=== PATIENT | male | born 1975 | race Caucasian/White ===

== ENCOUNTER → 2016-12-07 | Emergency (ER) | payer OTHER ==
[~2016-12-07] MED LIST: MAG HYDROX/AL HYDROX/SIMETH 30 ML UNIT-DOSE CUP ONE; MAG HYDROX/AL HYDROX/SIMETH 355 ML ORAL.SUSP PO ONE; PANTOPRAZOLE SOD 40 MG SUSPENSION PACKET PO ONE; PANTOPRAZOLE SODIUM 100 ML IVPB ONE; RANITIDINE HCL 150 MG TABLET (FP) ONE; RANITIDINE HCL 150 MG TABLET (FP) PO ONE
[2016-12-07 08:47] VITALS: BP 118/73; PULSE 68; TEMP 97.8; BMI 19.2
--- NOTE | 2016-12-07 09:43 | PDOC ---
History of Present Illness - General History Source: Patient Exam Limitations: No Limitations - History of Present Illness Initial Comments: 12/07/16 09:43 The patient is a 41 year old male with significant past medical history of hiatal hernia and depression who presents to the ED with nausea and epigastric pain. He reports burning since this morning in the epigastric area and nausea. He notes that he "loses his breath" when he goes to vomit. He also notes that he has difficulty eating meat because he has to vomit shortly after. He notes that he had an endoscopy 7 years ago and was diagnosed with hiatal hernia in [place] and have not had surgery since. He denies fever, chills, diarrhea, constipation, headache, blurry vision. He denies dysuria, frequency, urgency or hematuria. <Meghan Vadlez - Last Filed: 12/07/16 10:39> <Ze Moran - Last Filed: 12/07/16 10:59> - General Chief Complaint: Pain, Acute Stated Complaint: SOB, NAUSEA Time Seen by Provider: 12/07/16 09:08 Past History <Meghan Valdez - Last Filed: 12/07/16 10:39> - Past Medical History Other medical history: abd hernia - Psycho/Social/Smoking Cessation Hx Suicidal Ideation: No Smoking History: Never smoked <Ze Moran - Last Filed: 12/07/16 10:59> - Past Medical History Allergies/Adverse Reactions: Allergies Allergy/AdvReac Type Severity Reaction Status Date / Time No Known Allergies Allergy Verified 12/07/16 08:43 Home Medications: Ambulatory Orders Pantoprazole Sodium [Protonix -] 40 mg PO BID #28 tablet.ec 12/07/16 Ranitidine [Zantac -] 300 mg PO BID #28 tablet 12/07/16 Review of Systems - Review of Systems Able to Perform ROS?: Yes Comments:: 12/07/16 09:44 GENERAL/CONSTITUTIONAL: No fever or chills. No weakness. HEAD, EYES, EARS, NOSE AND THROAT: No change in vision. No ear pain or discharge. No sore throat. CARDIOVASCULAR: No chest pain or shortness of breath. RESPIRATORY: No cough, wheezing, or hemoptysis. GASTROINTESTINAL: +nausea +epigastic burning, +vomiting. No diarrhea or constipation. GENITOURINARY: No dysuria, frequency, or change in urination. MUSCULOSKELETAL: No joint or muscle swelling or pain. No neck or back pain. SKIN: No rash NEUROLOGIC: No headache, vertigo, loss of consciousness, or change in strength/ sensation. ENDOCRINE: No increased thirst. No abnormal weight change. HEMATOLOGIC/LYMPHATIC: No anemia, easy bleeding, or history of blood clots. ALLERGIC/IMMUNOLOGIC: No hives or skin allergy. <Meghan Valdez - Last Filed: 12/07/16 10:39> *Physical Exam - Vital Signs Last Vital Signs Temp Pulse Resp BP Pulse Ox 97.8 F 68 19 118/73 100 12/07/16 08:43 12/07/16 08:43 12/07/16 08:43 12/07/16 08:43 12/07/16 08:43 - Physical Exam Comments: 12/07/16 09:45 GENERAL: Awake, alert, and fully oriented, in no acute distress HEAD: No signs of trauma EYES: PERRLA, EOMI, sclera anicteric, conjunctiva clear ENT: Auricles normal inspection, hearing grossly normal, nares patent, oropharynx clear without exudates. Moist mucosa NECK: Normal ROM, supple, no lymphadenopathy, JVD, or masses LUNGS: Breath sounds equal, clear to auscultation bilaterally. No wheezes, and no crackles HEART: Regular rate and rhythm, normal S1 and S2, no murmurs, rubs or gallops ABDOMEN: Soft, nontender, normoactive bowel sounds. No guarding, no rebound. No masses EXTREMITIES: Normal range of motion, no edema. No clubbing or cyanosis. No cords, erythema, or tenderness NEUROLOGICAL: Cranial nerves II through XII grossly intact. Normal speech, normal gait SKIN: Warm, Dry, normal turgor, no rashes or lesions noted. <Meghan Valdez - Last Filed: 12/07/16 10:39> - Vital Signs Last Vital Signs Temp Pulse Resp BP Pulse Ox 97.8 F 68 19 118/73 100 12/07/16 08:43 12/07/16 08:43 12/07/16 08:43 12/07/16 08:43 12/07/16 08:43 <Ze Moran - Last Filed: 12/07/16 10:59> ED Treatment Course - LABORATORY CBC & Chemistry Diagram: 12/07/16 09:20 12/07/16 09:20 - RADIOLOGY Radiology Studies Ordered: 12/07/16 10:39 EXAM#: TYPE/EXAM: RESULT: US/ABDOMEN US -LIMITED Epigastric pain. Right upper abdomen ultrasound. The liver is within normal limits in size and echotexture. Gallbladder is adequately distended with a 3 mm polyp identified. No gallstones, gallbladder wall thickening or pericholecystic free fluid is identified. No intra or extrahepatic bile duct dilatation is seen. The right kidney measures 10.4 cm sagittal length and appears unremarkable. Visualized portion of the pancreas appears unremarkable Visualized portion of the proximal abdominal aorta and inferior vena cava appear unremarkable. Normal flow in the main portal vein IMPRESSION: 3 mm gallbladder polyp without evidence of gallstones or wall thickening. - Medications Given in the ED: ED Medications Discontinued Medications Generic Name Dose Route Start Last Admin Trade Name Freq PRN Reason Stop Dose Admin Al Hydroxide/Mg Hydroxide 30 ml 12/07/16 09:23 12/07/16 09:32 Mylanta Suspension - PO 12/07/16 09:24 30 ml ONCE ONE Administration Pantoprazole Sodium 40 mg 12/07/16 09:23 12/07/16 09:32 Protonix Packets For Oral Suspension - PO 12/07/16 09:24 40 mg ONCE ONE Administration Ranitidine HCl 300 mg 12/07/16 09:23 12/07/16 09:32 Zantac - PO 12/07/16 09:24 300 mg ONCE ONE Administration <Meghan Valdez - Last Filed: 12/07/16 10:39> - LABORATORY CBC & Chemistry Diagram: 12/07/16 09:20 12/07/16 09:20 - RADIOLOGY Radiology Studies Ordered: Category Date Time Status GALLBLADDER US [US] Stat Ultrasound 12/07/16 09:23 Ordered - Medications Given in the ED: ED Medications Discontinued Medications Generic Name Dose Route Start Last Admin Trade Name Freq PRN Reason Stop Dose Admin Al Hydroxide/Mg Hydroxide 30 ml 12/07/16 09:23 12/07/16 09:32 Mylanta Suspension - PO 12/07/16 09:24 30 ml ONCE ONE Administration Pantoprazole Sodium 40 mg 12/07/16 09:23 12/07/16 09:32 Protonix Packets For Oral Suspension - PO 12/07/16 09:24 40 mg ONCE ONE Administration Ranitidine HCl 300 mg 12/07/16 09:23 12/07/16 09:32 Zantac - PO 12/07/16 09:24 300 mg ONCE ONE Administration <Ze Moran - Last Filed: 12/07/16 10:59> Medical Decision Making - Medical Decision Making 12/07/16 09:45 41 year old male with significant past medical history of hiatal hernia and depression who presents to the ED with nausea and epigastric burning. Patient has been diagnosed with hiatal hernia 7 years ago and did not have surgery. Will order US, labs and meds. Patient will be reassessed after the results are back. 12/07/16 10:39 US of abdomen revels 3 mm gallbladder polyp without evidence of gallstones or wall thickening. Awaiting lab results. <Meghan Valdez - Last Filed: 12/07/16 10:39> *DC/Admit/Observation/Transfer <Meghan Valdez - Last Filed: 12/07/16 10:39> - Discharge Dispostion Admit: No - Attestations Physician Attestion: 12/07/16 09:43 I, Dr. Ze Moran, attest that this document has been prepared under my direction and personally reviewed by me in its entirety. I further attest, that it accurately reflects all work, treatment, procedures and medical decision -making performed by me. <Ze Moran - Last Filed: 12/07/16 10:59> Diagnosis at time of Disposition: Reflux esophagitis, Gall bladder polyp - Discharge Dispostion Disposition: HOME Condition at time of disposition: Good - Prescriptions Prescriptions: Pantoprazole Sodium [Protonix -] 40 mg PO BID #28 tablet.ec Ranitidine [Zantac -] 300 mg PO BID #28 tablet - Referrals Referrals: Moises Le MD [Staff Physician] - Jaden Gilman MD [Staff Physician] - - Patient Instructions Printed Discharge Instructions: DI for Gastroesophageal Reflux (MINI)-, Heartburn -- Overview, DI for Gastroesophageal Reflux Disease (GERD), DI for Biliary Colic Additional Instructions: Edu- You need to follow up with both a platen press feeder and a general surgeon. You have both reflux and a gall bladder polyp. We will get you started on some meds, Zantac and Protonix. Return to us if worse.
[2016-12-07 10:21] LABS: BASOPHIL 0.9 % (0-2.0); EOSINOPHIL 1.3 % (0-4.5); MCH 27.7 pg (25.7-33.7); MCHC 32.8 g/dl (32.0-35.9); MEAN CELL VOLUME 84.3 fl (80-96); MEAN PLT VOLUME 9.2 fl (7.5-11.1); NEUTROPHILS 53.5 % (42.8-82.8); PLATELET COUNT 169 K/MM3 (134-434); RDW 14.1 % (11.9-15.9); WHITE BLOOD COUNT 4.4 K/mm3 (4.0-10.0)
[2016-12-07 10:49] LABS: INR 1.18 (0.82-1.09)
[2016-12-07 11:02] LABS: ALBUMIN 4.3 g/dl (3.4-5.0); ANION GAP 8 (8-16); BILIRUBIN,TOTAL 1.4 mg/dL (0.2-1.0); CALCIUM 9.3 mg/dL (8.5-10.1); CO2 29 mmol/L (21-32); CREATININE 0.9 mg/dL (0.7-1.3); GLUCOSE,RANDOM 75 mg/dL (74-106); SGOT/AST 22 U/L (15-37); SGPT/ALT 38 U/L (12-78); TOT PROT 7.8 g/dl (6.4-8.2)
[2016-12-07 11:03] LABS: ALK PHOS 47 U/L (45-117)
== END | disposition home or self-care (01) ==
LOC: JER 08:36
DX: K21.0 Gastro-esophageal reflux disease with esophagitis (principal); K82.4 Cholesterolosis of gallbladder
CPT/HCPCS: 36415; 76705-TC; 80053; 83690; 85025; 85610; 99284-25